=== PATIENT | female | born 1980 | race Caucasian/White ===

== ENCOUNTER 2018-07-12 11:36 | Emergency (ER) | payer OTHER, SELFPAY ==
[2018-07-12 11:45] VITALS: BP 122/87; PULSE 95; RESP 16; TEMP 36.8; O2SAT 100
--- NOTE | 2018-07-12 11:57 | W.ED.GENAD ---
Discharge Plan Disposition Patient Disposition: HOME Condition: Improving Discharge Details Chief Complaint: Orthopedic Clinical Impression: Back contusion, Coccyx contusion, Contusion of left hip Primary Care Provider: [facility],Local ED Provider: Valencia Langley Home Meds and New Rx's Prescriptions: Continued acetaminophen [Tylenol] 325 mg Tablet 650 mg PO Q4H PRNRF: 0 ibuprofen [Advil] 200 mg Tablet 400 mg PO QID PRNRF: 0 Discharge Instructions Instructions: Coccyx Injury (ED), Contusion in Adults (ED) Additional Instructions: Apply ice to the affected area several times daily for 20 minutes at a time. Limit heavy lifting and heavy exertion for the next 1-2 weeks. Alternate Tylenol and Motrin as needed and directed for pain. Take the oxycodone for pain not relieved with Tylenol or Motrin. Follow-up with your primary care doctor next week for reevaluation. Return immediately to the emergency department with any worsening or concerning symptoms. Discharge Data Discharge Date/Time-TO BE ENTERED AT DEPARTURE: 07/12/18 14:38 Discharge Physician: Valencia Langley Medical Decision Making 37-year-old female who presents with pain in the mid and lower back and tailbone and left hip status post fall down 2 steps onto her back yesterday. Denies head injury, LOC or vomiting Patient has been ambulatory but with pain. Patient able to ambulate back to the room in the ED. Vitals within normal limits. She has midline mid thoracic spine tenderness as well as tenderness to palpation of the sacrum with ecchymosis noted. She has pain in left hip with range of motion but no obvious deformities, shortening or external rotation. She is neurovascular intact. Her chest and abdomen is nontender. She took Tylenol this morning for pain. We will give a dose of oxycodone and send for imaging. Discussed with radiology and recommend chest abdomen pelvis with thoracic and lumbar recon without as opposed to multiple x-rays. Urine test negative. Imaging reviewed and unremarkable. Reviewed sacrum and coccyx with [facility] radiologist and there is no coccyx fracture. Patient feels much better after oxycodone and ibuprofen and she feels good to go home. Patient instructed to rest, ice and avoid heavy lifting or exertion. She is instructed to alternate Tylenol and Motrin for pain. She was given 2 tabs of oxycodone for home if symptoms not relieved with Tylenol or Motrin. She is instructed to follow-up with the primary care doctor for reevaluation and return here if worse. Medical Records Medical records reviewed: Yes I reviewed the patient's medical records. Imaging Data Radiologic Study: Radiologist's impression: CT Chest Without Contrast EXAM DATE/TIME: 07/12/2018 12:17 PM FINDINGS: Lungs: Normal. No consolidation. No masses. Pleural space: Normal. No pneumothorax. No pleural effusion. Heart: Normal. No cardiomegaly. No pericardial effusion. Aorta: Normal. No aortic aneurysm. Lymph nodes: Unremarkable. No enlarged lymph nodes. Bones/joints: Chronic compression fracture of T8. No acute fracture. Soft tissues: Unremarkable. IMPRESSION: No acute findings. CT Abdomen and Pelvis Without Contrast EXAM DATE/TIME: 07/12/2018 12:17 PM FINDINGS: Lower thorax: See report for CT chest ABDOMEN: Liver: Normal. No mass. Gallbladder and bile ducts: Normal. No calcified stones. No ductal dilation. Pancreas: Normal. No ductal dilation. Spleen: Normal. No splenomegaly. Adrenals: Normal. No mass. Kidneys and ureters: Mild dilatation of the collecting systems and proximal ureters. Unknown etiology No ureteral calculus. Stomach and bowel: Normal. No obstruction. No mucosal thickening. Appendix: No evidence of appendicitis. PELVIS: Bladder: Unremarkable as visualized. Reproductive: 1.9 cm right ovarian cyst ABDOMEN and PELVIS: Intraperitoneal space: Mild amount of free fluid in the pelvis. Bones/joints: No acute fracture. No dislocation. Soft tissues: Unremarkable. Vasculature: Normal. No abdominal aortic aneurysm. Lymph nodes: Normal. No enlarged lymph nodes. IMPRESSION: Mild dilatation of the collecting systems and proximal ureters. Unknown etiology CT Thoracic Spine Without Contrast EXAM DATE/TIME: 07/12/2018 12:17 PM FINDINGS: Vertebrae: There is no evidence of acute fracture. There is no evidence of malalignment or dislocation. Chronic compression of T8. Degenerative changes in the thoracic spine Discs/Spinal canal/Neural foramina: No spinal stenosis. No neural foraminal narrowing. Soft tissues: Unremarkable. IMPRESSION: There is no evidence of acute fracture. There is no evidence of malalignment or dislocation. CT Lumbar Spine Without Contrast EXAM DATE/TIME: 07/12/2018 12:17 PM FINDINGS: Vertebrae: No fracture or of the lumbar spine. No dislocation of the lumbar spine. 6 ribless lumbar vertebral bodies Discs/Spinal canal/Neural foramina: No spinal stenosis. No neural foraminal narrowing. Soft tissues: Unremarkable. IMPRESSION: No fracture or of the lumbar spine. No dislocation of the lumbar spine. Addendum created by Sierra Christie MD on 07/12/2018 2:13:24 PM EDT Addendum: Dr. Langley called to ask about the coccyx. No definite fracture of the coccyx. Initial report created on 07/12/2018 1:48:03 PM EDT Lab Data Lab results reviewed: Yes I reviewed the patient's lab results. test negative. HPI General Mode of arrival: ambulatory. Date/Time Provider Initiated Documentation: 07/12/18 11:38. Limitations to Documentation: no limitations. Information obtained by: patient. HPI Narrative: Patient is a 37-year-old female who presents with mid and lower back pain and left hip pain since yesterday after slipping and falling down 2 stairs. Patient states she was walking when she slipped and fell down 2 stairs and hit her lower back and left hip on stairs. She took Tylenol this morning for pain with minimal relief. She states she is able to ambulate but has pain with movement. She denies any bowel or bladder incontinence, saddle anesthesia, leg pain or numbness. She denies head injury, LOC or vomiting. She denies chest pain or abdominal pain. She denies any upper extremity injury. Related Data Home Medications Medication Instructions Recorded Confirmed acetaminophen [Tylenol] 650 mg PO Q4H PRN 07/12/18 07/12/18 ibuprofen [Advil] 400 mg PO QID PRN 07/12/18 07/12/18 Allergies Allergy/AdvReac Type Severity Reaction Status Date / Time Iodinated Contrast- Oral and Allergy Unverified 07/12/18 11:48 IV Dye Penicillins Allergy Unverified 07/12/18 11:48 tioconazole Allergy Unverified 07/12/18 11:48 [From Monistat 1 (tioconazole)] metoclopramide [From Reglan] AdvReac Unverified 07/12/18 11:48 General Stated Complaint: Orthopedic YUE: 3 Review of Systems Review of Systems All systems reviewed & are unremarkable except as noted in HPI and below Constitutional Reports as per HPI, Denies chills and Denies fever(s) Eyes Denies blurry vision ENT Denies dizziness, Denies sore throat and Denies throat swelling Cardiovascular Denies chest pain and Denies dyspnea Respiratory Denies cough and Denies dyspnea Gastrointestinal Denies abdominal pain, Denies diarrhea and Denies vomiting Genitourinary Denies hematuria and Denies dysuria Musculoskeletal Reports back pain, Denies numbness and Reports other (L hip pain) Integumentary/Breasts Denies lesions and Denies rash Neurologic Denies dizziness, Denies focal weakness and Denies numbness Allergic/Immunologic Denies throat swelling [facility] Medical History Obstructive sleep apnea (Chronic) Surgical History S/p bilateral myringotomy with tube placement (Acute) History of tonsillectomy (Chronic) Social History Smoking/Tobacco Use Status: Never Alcohol Intake: current Alcohol Intake frequency: a few times a month Drug use: Never Additional Social history: unable to assess Exam Const General: cooperative, healthy appearing and no acute distress HENMT Head: normal to inspection Face and sinus: normal facial exam Eyes General: appearance normal, both eyes and all related structures EOM: EOM intact bilaterally Neck Neck: normal visual inspection and No submandibular swelling Lymphatic: no lymphadenopathy noted Chest Chest: normal inspection of the chest, normal palpation of entire chest wall, no crepitus and no tenderness Breast inspection: normal inspection of the breasts Resp Effort & Inspection: normal respiratory effort and able to speak in complete sentences Auscultation: clear to auscultation bilaterally Cardio Rate: regular rate Rhythm: regular rhythm GI Inspection: normal to inspection and no abdominal wall ecchymosis Palpation: soft, not firm, not rigid and nontender Auscultation: normal bowel sounds Back/Spine/Pelvis Back/spine/pelvis image: 1. Tenderness to palpation midline mid thoracic spine. No evidence of ecchymosis, erythema, edema. 2. Tenderness to palpation midline lumbar spine with ecchymosis noted. 3. Tenderness to palpation of the left lateral buttock but no evidence of ecchymosis, erythema, laceration or abrasion. Skin General skin exam: no rashes or lesions noted Neuro General: alert, awake and oriented x3 Cognition: normal cognition Speech: speech normal Motor: muscle tone normal throughout Sensory Exam: no sensory deficits noted Extrem Other: Pain in left hip with flexion internal and external rotation. No left lower extremity shortening or external rotation. No evidence of trauma noted to left hip. Normal right hip exam without pain with range of motion or tenderness to palpation or evidence of trauma. No pain with range of motion in bilateral knees/ankles and feet without evidence of trauma. Bilateral DP/PT pulses intact. Psych Appearance: grossly normal Mental Status: mental status grossly normal Speech and Movement: speech and movement normal Affect: normal affect Course Vital Signs Temperature 98.2 F 07/12/18 11:45 Pulse 95 H 07/12/18 11:45 Respiratory Rate 16 07/12/18 11:45 Blood Pressure 122/87 07/12/18 11:45 Pulse Oximetry 100 07/12/18 11:45 Temperature 98.2 F 07/12/18 11:45 Temperature Source Temporal Artery Scan 07/12/18 11:45 Pulse 95 H 07/12/18 11:45 Respiratory Rate 16 07/12/18 11:45 Blood Pressure 122/87 07/12/18 11:45 Blood Pressure Position Standing 07/12/18 11:45 Pulse Oximetry 100 07/12/18 11:45 Oxygen Delivery Method Room Air 07/12/18 11:45 Oxygen Flow Rate 0 07/12/18 11:45 Pain Level 7 07/12/18 11:45
--- NOTE | 2018-07-12 12:15 | DI.CT_ITS ---
SYMPTOM/DIAGNOSIS: S/P FALL, PAIN, ? FX CHEST/ABDOMEN AND PELVIC CT: CT examination of the chest, abdomen and pelvis was performed without contrast administration. Please note that evaluation for trauma is very limited without IV contrast administration. Lungs are clear and well expanded. No pulmonary contusion. Mediastinal vascular structures grossly unremarkable by noncontrast criteria. No pleural effusion or pneumothorax. Tracheobronchial tree appears intact. Liver and spleen grossly unremarkable by noncontrast appearance as is the pancreas. Gallbladder and bile ducts are unremarkable. Adrenals and kidneys are unremarkable. No free fluid or free air in the peritoneal cavity apart from minimal nonspecific fluid in the pelvis which may be physiologic. No abdominal wall hernia is seen. No evidence of bowel obstruction or injury. CONCLUSION: No evidence of acute injury. Please note that without IV contrast evaluation of vascular and solid organ structures is limited. THORACIC SPINE CT RECONSTRUCTIONS: Thoracic spine CT reconstructions were obtained and show an apparent old mild compression fracture of T 8. No evidence of acute fracture of the thoracic spine. LUMBAR SPINE CT RECONSTRUCTIONS: CT reconstructions of lumbosacral spine were performed and show no evidence of fracture.
[2018-07-12] MEDS: oxyCODONE 5 MG TAB PO (12:30)
[2018-07-12] MEDS: Ondansetron O.D.T. 4 MG TABEF PO (12:31)
[2018-07-12] MEDS: Ibuprofen 600 MG TAB PO (13:34)
--- NOTE | 2018-07-12 13:48 | DI.VRAD_ITS ---
Addendum created by Sierra Christie MD on 07/12/2018 2:13:24 PM EDT Addendum: Dr. Langley called to ask about the coccyx. No definite fracture of the coccyx. Initial report created on 07/12/2018 1:48:03 PM EDT EXAM: CT Chest Without Contrast EXAM DATE/TIME: 07/12/2018 12:17 PM CLINICAL HISTORY: 37 years old, female; Pain; Other: S/P fall, R/O acute fracture to ribs/ pelvis. ; Patient HX: S/P fall. ; Additional info: Please read thoracic recons and lumbar spine out of the cap, file was corrupted unable to send recons, er doctor would like reading on thoracic and lumbar spine. TECHNIQUE: Imaging protocol: Axial computed tomography images of the chest without intravenous contrast. Coronal and sagittal reformatted images were created and reviewed. Radiation optimization: All CT scans at this facility use at least one of these dose optimization techniques: automated exposure control; mA and/or kV adjustment per patient size (includes targeted exams where dose is matched to clinical indication); or iterative reconstruction. COMPARISON: No relevant prior studies available. FINDINGS: Lungs: Normal. No consolidation. No masses. Pleural space: Normal. No pneumothorax. No pleural effusion. Heart: Normal. No cardiomegaly. No pericardial effusion. Aorta: Normal. No aortic aneurysm. Lymph nodes: Unremarkable. No enlarged lymph nodes. Bones/joints: Chronic compression fracture of T8. No acute fracture. Soft tissues: Unremarkable. IMPRESSION: No acute findings. EXAM: CT Abdomen and Pelvis Without Contrast EXAM DATE/TIME: 07/12/2018 12:17 PM CLINICAL HISTORY: 37 years old, female; Pain; Other: S/P fall, R/O acute fracture to ribs/ pelvis. ; Patient HX: S/P fall. ; Additional info: Please read thoracic recons and lumbar spine out of the cap, file was corrupted unable to send recons, er doctor would like reading on thoracic and lumbar spine. TECHNIQUE: Imaging protocol: Axial computed tomography images of the abdomen and pelvis without contrast. Coronal and sagittal reformatted images were created and reviewed. Radiation optimization: All CT scans at this facility use at least one of these dose optimization techniques: automated exposure control; mA and/or kV adjustment per patient size (includes targeted exams where dose is matched to clinical indication); or iterative reconstruction. COMPARISON: No relevant prior studies available. FINDINGS: Lower thorax: See report for CT chest ABDOMEN: Liver: Normal. No mass. Gallbladder and bile ducts: Normal. No calcified stones. No ductal dilation. Pancreas: Normal. No ductal dilation. Spleen: Normal. No splenomegaly. Adrenals: Normal. No mass. Kidneys and ureters: Mild dilatation of the collecting systems and proximal ureters. Unknown etiology No ureteral calculus. Stomach and bowel: Normal. No obstruction. No mucosal thickening. Appendix: No evidence of appendicitis. PELVIS: Bladder: Unremarkable as visualized. Reproductive: 1.9 cm right ovarian cyst ABDOMEN and PELVIS: Intraperitoneal space: Mild amount of free fluid in the pelvis. Bones/joints: No acute fracture. No dislocation. Soft tissues: Unremarkable. Vasculature: Normal. No abdominal aortic aneurysm. Lymph nodes: Normal. No enlarged lymph nodes. IMPRESSION: Mild dilatation of the collecting systems and proximal ureters. Unknown etiology EXAM: CT Thoracic Spine Without Contrast EXAM DATE/TIME: 07/12/2018 12:17 PM CLINICAL HISTORY: 37 years old, female; Pain; Other: S/P fall, R/O acute fracture to ribs/ pelvis. ; Patient HX: S/P fall. ; Additional info: Please read thoracic recons and lumbar spine out of the cap, file was corrupted unable to send recons, er doctor would like reading on thoracic and lumbar spine. TECHNIQUE: Imaging protocol: Axial computed tomography images of the thoracic spine without intravenous contrast. Sagittal and coronal images were also evaluated COMPARISON: No relevant prior studies available. FINDINGS: Vertebrae: There is no evidence of acute fracture. There is no evidence of malalignment or dislocation. Chronic compression of T8. Degenerative changes in the thoracic spine Discs/Spinal canal/Neural foramina: No spinal stenosis. No neural foraminal narrowing. Soft tissues: Unremarkable. IMPRESSION: There is no evidence of acute fracture. There is no evidence of malalignment or dislocation. EXAM: CT Lumbar Spine Without Contrast EXAM DATE/TIME: 07/12/2018 12:17 PM CLINICAL HISTORY: 37 years old, female; Pain; Other: S/P fall, R/O acute fracture to ribs/ pelvis. ; Patient HX: S/P fall. ; Additional info: Please read thoracic recons and lumbar spine out of the cap, file was corrupted unable to send recons, er doctor would like reading on thoracic and lumbar spine. TECHNIQUE: Imaging protocol: Axial computed tomography images of the lumbar spine without intravenous contrast. Coronal images are also evaluated COMPARISON: No relevant prior studies available. FINDINGS: Vertebrae: No fracture or of the lumbar spine. No dislocation of the lumbar spine. 6 ribless lumbar vertebral bodies Discs/Spinal canal/Neural foramina: No spinal stenosis. No neural foraminal narrowing. Soft tissues: Unremarkable. IMPRESSION: No fracture or of the lumbar spine. No dislocation of the lumbar spine. Dictated and Authenticated by: Sierra Christie MD. Ordering:VENECIA Birmingham MD
[2018-07-12] MEDS: oxyCODONE 5 MG TAB 10 MG PO (14:33)
== END 2018-07-12 14:38 | disposition home or self-care (01) ==
PROVIDERS: Emergency Provider Physician Assistant
DX: S20.222A Contusion of left back wall of thorax, initial encounter (principal); S30.0XXA Contusion of lower back and pelvis, initial encounter; S70.02XA Contusion of left hip, initial encounter; W10.8XXA Fall (on) (from) other stairs and steps, initial encounter
CPT/HCPCS: 71250; 81025; 99284; 74176